=== PATIENT | female | born 1985 | race Caucasian/White ===

== ENCOUNTER 2018-02-17 21:48 | Emergency (ER) | payer OTHER ==
--- NOTE | 2018-02-17 21:57 | PDOC ---
Rapid Medical Evaluation Time Seen by Provider: 02/17/18 21:51 Medical Evaluation: Allergies Allergy/AdvReac Type Severity Reaction Status Date / Time No Known Allergies Allergy Verified 06/10/11 10:25 02/17/18 21:51 I have performed a brief in-person evaluation of this patient. The patient presents with a chief complaint of: On keflex for R wrist cellulitis given at yesterday, sent in for worsening of condition. 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 No fever. States pt baseline otherwise. H/o down syndrome, CP, HLD, quadriplegia Pertinent physical exam findings:Afebrile, dorsum of R hand/wrist w/ erythema and warmth, extending into forearm I have ordered the following:labs The patient will proceed to the ED for further evaluation. Discharge Disposition - Diagnosis Cellulitis Qualifiers: Site of cellulitis: extremity Site of cellulitis of extremity: lower extremity Laterality: right Qualified Code(s): L03.115 - Cellulitis of right lower limb - Referrals - Patient Instructions - Post Discharge Activity
[2018-02-17 21:59] VITALS: BP 146/95; PULSE 80; TEMP 98; BMI 21.2
--- NOTE | 2018-02-17 22:38 | PDOC ---
Attending Attestation - HPI HPI: 02/17/18 23:09 The patient is a 32-year-old female with a past medical history significant for Down syndrome, quadriplegia, epilepsy presents, HLD to the emergency department from [facility] [place] via EMS for increasing redness to the R. forearm. The patient was seen at an Urgent Care for the symptoms, was started on Keflex, without improvement. Prior to DC, the affected area was marked with a pen. Per aide assisting with the history, the redness was radiating past the marked site and was sent to the ER for IV abx treatment. The patient is non-verbal baseline. Allergies: NKA - Medical Decision Making 02/17/18 23:10 Documentation prepared by Ana Patel, acting as medical clerk for Rajinder Rey MD. <Ana Patel - Last Filed: 02/17/18 23:09> - Resident Resident Name: Italo De La Torre - ED Attending Attestation I have performed the following: I have examined & evaluated the patient, The case was reviewed & discussed with the resident, I agree w/resident's findings & plan, Exceptions are as noted - Physicial Exam PE: 02/17/18 23:57 Patient is awake and alert, afebrile, nonverbal, wheelchair bound Microcephalic, Conjunctiva are pink, there is no scleral icterus CTA RRR Right upper extremity: Several punctate elevated papular lesions to the distal dorsal forearm with an area of erythema measuring 5-6 cm extending proximally, without significant proximal lymphadenopathy. - Medical Decision Making 02/17/18 23:59 Patient is a 32-year-old female with history of Down syndrome, seizure disorder who presents with cellulitis of the right dorsal forearm. Patient is afebrile. CBC is within normal limit. Will administer IM ceftriaxone. Will advise continuous Keflex therapy and will advise return in 24 hours for reevaluation. <Rajinder Rey - Last Filed: 02/18/18 00:00>
[2018-02-17 23:10] LABS: BASO % 0.3 % (0-2.0); EOS % 4.4 % (0-4.5); HEMATOCRIT 39.4 % (32.4-45.2); HEMOGLOBIN 13.4 GM/dL (10.7-15.3); MCH 28.1 pg (25.7-33.7); MEAN CELL VOLUME 82.7 fl (80-96); MEAN PLT VOLUME 9.7 fl (7.5-11.1); MONO % 7.5 % (3.8-10.2); NEUT % 50.8 % (42.8-82.8); PLATELET COUNT 251 K/MM3 (134-434); RBC 4.77 M/mm3 (3.60-5.2); RDW 13.2 % (11.6-15.6); WHITE BLOOD COUNT 6.4 K/mm3 (4.0-10.0)
--- NOTE | 2018-02-17 23:32 | PDOC ---
History of Present Illness - General Chief Complaint: Redness To Affected Area Stated Complaint: BITE ON RIGHT HAND Time Seen by Provider: 02/17/18 21:51 History Source: Other (nurse aid) Exam Limitations: No Limitations - History of Present Illness Initial Comments: 02/17/18 23:23 32 yo female pmh of quadriplegia, down syndrome (non verbal) and seizures (on carbamazepine) presents from [place] for right arm swelling. Nurse aid present , provides hpi who knows pt for over 8 years. Pt went to Urgent Care for swelling in the right forearm yesterday, given 500mg Keflex and told to come back if the swelling extended beyond pen tracing around the wound. This am Nurse aid states the swelling improved but redness was noted past the pen markings. Urgent care sent pt for further evaluation. Nurse aid states pt shows when she is in discomfort by moaning in the past which has not occurred today. Temps at the home have been WNL as well Past History - Past Medical History Allergies/Adverse Reactions: Allergies Allergy/AdvReac Type Severity Reaction Status Date / Time No Known Allergies Allergy Verified 06/10/11 10:25 COPD: No Hypercholesterolemia: Yes Seizures: Yes Other medical history: DOWN'S SYNDROME, CP, QUADRIPLEGIA - Suicide/Smoking/Psychosocial Hx Smoking Status: No Smoking History: Never smoked Number of Cigarettes Smoked Daily: 0 Review of Systems - Review of Systems Able to Perform ROS?: No (non verbal ) *Physical Exam - Vital Signs Last Vital Signs Temp Pulse Resp BP Pulse Ox 98 F 80 18 146/95 95 02/17/18 21:55 02/17/18 21:55 02/17/18 21:55 02/17/18 21:55 02/17/18 21:55 Moderate Sedation - Procedure Monitoring Vital Signs: Procedure Monitoring Vital Signs Temperature 98 F 02/17/18 21:55 Pulse Rate 80 02/17/18 21:55 Respiratory Rate 18 02/17/18 21:55 Blood Pressure 146/95 02/17/18 21:55 O2 Sat by Pulse Oximetry (%) 95 02/17/18 21:55 ED Treatment Course - LABORATORY CBC & Chemistry Diagram: 02/17/18 23:00 02/17/18 23:00 - ADDITIONAL ORDERS Additional order review: Laboratory Results 02/17/18 23:00 WBC 6.4 RBC 4.77 Hgb 13.4 Hct 39.4 MCV 82.7 MCH 28.1 MCHC 34.0 RDW 13.2 Plt Count 251 D MPV 9.7 D Absolute Neuts (auto) 3.2 Neutrophils % 50.8 Lymphocytes % 37.0 Monocytes % 7.5 Eosinophils % 4.4 Basophils % 0.3 Nucleated RBC % 0 02/17/18 23:00 RBC 4.77 MCV 82.7 MCHC 34.0 RDW 13.2 MPV 9.7 D Neutrophils % 50.8 Lymphocytes % 37.0 Monocytes % 7.5 Eosinophils % 4.4 Basophils % 0.3 *DC/Admit/Observation/Transfer Diagnosis at time of Disposition: Cellulitis Qualifiers: Site of cellulitis: extremity Site of cellulitis of extremity: lower extremity Laterality: right Qualified Code(s): L03.115 - Cellulitis of right lower limb - Discharge Dispostion [facility]position[facility] Condition at time of disposition: Stable Decision to Admit order: No - Referrals - Patient Instructions Printed Discharge Instructions: DI for Cellulitis -- Adult, DI for Peripheral Edema, Unilateral Additional Instructions: Make appointment with Primary Care Doctor within the next 24-48 hours. Please come back to the Emergency Room tomorrow to have the margins of the wound assessed or if the [facility] Doctor is available to assess, allow them to determine whether or not the patient requires a return trip to the Hospital for further care. Continue taking the Keflex as prescribed by the Urgent Care until completed. Return to the Emergency Room for new or worsening symptoms including but not limited to: continued swelling, drainage, extension of the wound or high fevers within the next 2 weeks. Thank you - Post Discharge Activity
[2018-02-17] MEDS ORDERED: cefTRIAXone SODIUM 1 GM VIAL ONE (23:36)
[2018-02-18 00:50] LABS: ALBUMIN 3.8 g/dl (3.4-5.0); ALK PHOS 120 U/L (45-117); ANION GAP 9 MMOL/L (8-16); BILIRUBIN,TOTAL 0.2 mg/dL (0.2-1); BLOOD UREA NITROGEN 12 mg/dL (7-18); CALCIUM 8.8 mg/dL (8.5-10.1); CHLORIDE 103 mmol/L (98-107); CO2 26 mmol/L (21-32); CREATININE 0.9 mg/dL (0.55-1.3); GLUCOSE,RANDOM 124 mg/dL (74-106); SGOT/AST 15 U/L (15-37); SGPT/ALT 23 U/L (13-61); SODIUM 138 mmol/L (136-145); TOT PROT 8.2 g/dl (6.4-8.2)
== END 2018-02-18 00:17 ==
LOC: JER 21:48
DX: L03.113 Cellulitis of right upper limb (principal); Q90.9 Down syndrome, unspecified; G80.8 Other cerebral palsy; Q02 Microcephaly; G40.909 Epilepsy, unspecified, not intractable, without status epilepticus; E78.5 Hyperlipidemia, unspecified; Z99.3 Dependence on wheelchair
CPT/HCPCS: 36415; 80053; 85025; 87040; 96372; 99281-25